=== PATIENT | female | born 1990 | race Caucasian/White ===

== ENCOUNTER → 2017-05-08 | Outpatient (CLI) | payer SELFPAY ==
[2017-05-08 16:24] LABS: HEMOGLOBIN 12.7 g/dL (12.2-16.2); LYMPH # 1.4 K/mm3 (0.7-4.5); LYMPH % 27.3 % (10-50.0)
[2017-05-08 18:46] LABS: ABO BLOOD TYPE A; RH BLOOD TYPE NEGATIVE
[2017-05-10 04:38] LABS: HIV Screen 4th Generation wRfx Non Reactive (Non Reactive)
[2017-05-10 06:37] LABS: HBsAg Screen Negative (Negative); Hep C Virus Ab <0.1 (0.0-0.9); Rubella Antibodies, IgG <0.90 index (Immune >0.99)
[2017-05-10 09:37] LABS: Rapid Plasma Reagin, Quant Non Reactive (NonRea<1:1)
== END ==
LOC: LAB 15:11 → EDBD 15:11
PROVIDERS: Nurse Practitioner Obstetrics & Gynecology
DX: Z34.80 Encounter for supervision of other normal pregnancy, unspecified trimester (principal)
CPT/HCPCS: G0432